=== PATIENT | female | born 1965 | race Caucasian/White ===

== ENCOUNTER → 2016-07-28 | Outpatient (CLI) | payer OTHER | LOC: MAMO 09:18 | DX: Z12.31 Encounter for screening mammogram for malignant neoplasm of breast (principal) | CPT/HCPCS: G0202 ==

== ENCOUNTER → 2016-07-28 | Outpatient (CLI) | payer OTHER | LOC: KOH-I 10:28 | DX: Z13.820 Encounter for screening for osteoporosis (principal) | CPT/HCPCS: 77080 ==

== ENCOUNTER → 2016-08-27 | Outpatient (CLI) | payer OTHER | LOC: MAMO 08-05 14:00 | DX: N63 Unspecified lump in breast (principal); D48.62 Neoplasm of uncertain behavior of left breast | CPT/HCPCS: 76641-LT; G0206 ==

== ENCOUNTER 2020-07-30 15:50 | Emergency (ER) | payer OTHER | END 2020-07-30 21:58 | disposition home or self-care (01) | LOC: ER1 15:50 | DX: S16.1XXA Strain of muscle, fascia and tendon at neck level, initial encounter (principal); R51.9 Headache, unspecified; M54.9 Dorsalgia, unspecified; R91.1 Solitary pulmonary nodule; V49.40XA Driver injured in collision with unspecified motor vehicles in traffic accident, initial encounter; Y92.410 Unspecified street and highway as the place of occurrence of the external cause | CPT/HCPCS: 70450; 71260; 72125; 72128; 72131; 99283; Q9967 ==